=== PATIENT | male | born 1990 | race Caucasian/White ===

== ENCOUNTER 2018-10-26 01:01 | Emergency (ER) | payer SELFPAY, OTHER ==
[~2018-10-26] VITALS: Ht 177.8 cm; Wt 113.6 kg
--- NOTE | 2018-10-26 02:31 | REP ---
Clinical: Trauma. Technique: AP, lateral, bilateral oblique views of the right ankle. Findings: Mild lateral swelling is appreciated. There is a subtle osteochondral defect along the medial aspect of the talar dome which requires correlation. This may represent an acute versus old injury and requires correlation. No other fracture or dislocation is appreciated. No subcutaneous emphysema. No foreign body. Impression: 1. Osteochondral defect along the medial aspect of the talar dome may represent acute versus chronic injury. 2. Mild swelling. Electronically Signed by Young Philip MD 10/26/2018 02:22 A
[2018-10-26 03:54] VITALS: BP 163/92
--- NOTE | 2018-10-26 11:48 | ED PDOC ---
Post-Departure Follow-Up [employer] munir goncalves requested to call pt and review formal reportof right amy trujillo. pt to david w ncog and continue to use air cast and crutches mlg Jarad Quiros MD Oct 26, 2018 11:48
== END 2018-10-26 04:53 | disposition home or self-care (01) ==
LOC: M ED 01:01
DX: S93.401A Sprain of unspecified ligament of right ankle, initial encounter (principal); W18.42XA Slipping, tripping and stumbling without falling due to stepping into hole or opening, initial encounter; Y92.89 Other specified places as the place of occurrence of the external cause; Y99.0 Civilian activity done for income or pay; F17.200 Nicotine dependence, unspecified, uncomplicated